=== PATIENT | male | born 1975 | race Caucasian/White ===

== ENCOUNTER 2017-06-19 10:27 | Emergency (ER) | payer OTHER ==
[~2017-06-19] VITALS: Ht 182.9 cm; Wt 68.0 kg
--- NOTE | 2017-06-19 11:02 | NUR ---
Patient discharged to home in stable conditon. Written and verbal after care instructions given. Patient verbalizes understanding of instructions.
== END 2017-06-19 11:06 | disposition home or self-care (01) ==
LOC: ER 10:27
DX: K02.9 Dental caries, unspecified (principal); F17.200 Nicotine dependence, unspecified, uncomplicated
CPT/HCPCS: A4663

== ENCOUNTER 2017-07-12 09:57 | Emergency (ER) | payer OTHER ==
[~2017-07-12] VITALS: Ht 182.9 cm; Wt 68.0 kg
--- NOTE | 2017-07-12 10:09 | NUR ---
Dr Hood at the bedside for eval and exam.
[2017-07-12 10:24] VITALS: BP 133/80
--- NOTE | 2017-07-12 10:24 | NUR ---
Patient discharged in stable conditon. Written and verbal after care instructions given. Patient verbalizes understanding of instructions.
== END 2017-07-12 10:25 | disposition home or self-care (01) ==
LOC: ER 09:59
DX: K08.89 Other specified disorders of teeth and supporting structures (principal); F17.200 Nicotine dependence, unspecified, uncomplicated; Z88.6 Allergy status to analgesic agent
CPT/HCPCS: 99283; A4663

== ENCOUNTER 2017-09-07 12:57 | Emergency (ER) | payer OTHER ==
[~2017-09-07] VITALS: Ht 185.4 cm; Wt 72.6 kg
--- NOTE | 2017-09-07 13:24 | NUR ---
Patient discharged to home in stable conditon. Written and verbal after care instructions given. Patient verbalizes understanding of instructions.
== END 2017-09-07 13:26 | disposition home or self-care (01) ==
LOC: ER 12:57
DX: K02.9 Dental caries, unspecified (principal); Z88.5 Allergy status to narcotic agent; F17.200 Nicotine dependence, unspecified, uncomplicated
CPT/HCPCS: 99283; A4663

== ENCOUNTER 2018-03-28 19:53 | Emergency (ER) | payer MEDICAID, OTHER ==
[~2018-03-28] VITALS: Ht 185.4 cm; Wt 70.3 kg
--- NOTE | 2018-03-28 20:08 | NUR ---
Patient ambulated with stable gait, patient ambulated to restroom at this time. States he needs to have a BM. Denies nausea at this time. PO challenge well tolerated. patient consumed 240ml of water without nausea/vomiting/GI discomfort.
--- NOTE | 2018-03-28 20:19 | NUR ---
Patient requested to use restroom in waiting room. ER MD is aware. Awaiting patient return to ER Room for further evaluation. No acute distress at time of ambulation to restroom.
--- NOTE | 2018-03-28 20:22 | NUR ---
Patient eloped from facility. ER physician notified. All belongings with patient. Patient states " I feel better now that I drank water. I am going to leave now. Thank you guys". All belongings with patient.
== END 2018-03-28 20:27 | disposition left against medical advice (07) ==
LOC: ER 19:54
DX: Z53.21 Procedure and treatment not carried out due to patient leaving prior to being seen by health care provider (principal)
CPT/HCPCS: 99281; A4663